=== PATIENT | female | born 1985 | race Asian ===

== ENCOUNTER 2018-06-26 10:11 | Inpatient (IN) | payer SELFPAY ==
[~2018-06-26] VITALS: Ht 160 cm; Wt 86.2 kg
[2018-06-26] MEDS ORDERED: PREN-380 PO (10:20)
[2018-06-26] MEDS ORDERED: LACTATED RINGERS 1,000 ML IV SCH (10:21)
[2018-06-26 10:53] LABS: BASOPHILS % (AUTO) 0.1 % (0.0-2.0); EOSINOPHILS % (AUTO) 0.5 % (0.0-4.0); HEMOGLOBIN 10.6 g/dL (12.0-16.0); LYMPHOCYTES # (AUTO) 1.3 K/uL (2.5-16.5); LYMPHOCYTES % (AUTO) 16.1 % (20.5-51.1); MEAN CORPUSCULAR HEMOGLOBIN 28 pg (27-31); MEAN CORPUSCULAR HGB CONC 32 g/dL (33-37); MEAN CORPUSCULAR VOLUME 87.1 fL (80-94); MONOCYTES # (AUTO) 0.6 K/uL (0.8-1.0); NEUTROPHILS # (AUTO) 6.1 K/uL (1.8-7.7); NEUTROPHILS % (AUTO) 76.3 % (42.2-75.2); PLATELET COUNT (AUTO) 140 K/uL (140-450); RED BLOOD CELL COUNT(AUTO) 3.78 MIL/uL (4.20-5.40); RED CELL DISTRIBUTION WIDTH 23.6 % (11.6-13.7); WHITE BLOOD COUNT (AUTO) 8.1 K/uL (4.8-10.8)
[2018-06-26 10:56] LABS: APPEARANCE,URINE CLEAR (CLEAR); BILIRUBIN,URINE NEGATIVE (NEGATIVE); BLOOD, URINE 2+ (NEGATIVE); COLOR,URINE YELLOW (YELLOW); LEUKOCYTE ESTERASE ,URINE NEGATIVE (NEGATIVE); NITRITE, URINE NEGATIVE (NEGATIVE); PH,URINE 6.5 (5.0-9.0); UGLUCOSE NEGATIVE (NEGATIVE)
[2018-06-26 11:07] LABS: RBC,URINE 0-5 (RARE) /HPF (0-5); WBC,URINE 0-5 (RARE) /HPF (0-5)
[2018-06-26] MEDS ORDERED: ePHEDrine 50 MG/ML VIAL ONE (11:58)
[2018-06-26] MEDS ORDERED: BUPIVACAINE/DEXT 0.75% SPINAL 2 ML AMP INJ ONE (11:58)
[2018-06-26] MEDS ORDERED: OXYTOCIN 10 UNITS/ML VIAL ONE (11:59)
[2018-06-26] MEDS ORDERED: fentaNYL 0.05 MG/ML VIAL ONE (12:03)
[2018-06-26] MEDS ORDERED: MORPHINE PRES FREE 2 MG/2 ML 2 mL UD SYRINGE ONE (12:03)
[2018-06-26] MEDS ORDERED: ONDANSETRON 4 MG/2 ML VIAL IVP PRN ×2 (12:30→16:00)
[2018-06-26] MEDS ORDERED: NALBUPHINE 10 MG/ML AMP IVP PRN (12:30)
[2018-06-26] MEDS ORDERED: NALOXONE 0.4 MG/ML VIAL IVP PRN ×2 (12:30)
[2018-06-26] MEDS ORDERED: KETOROLAC 60 MG/2 ML VIAL IM PRN (12:30)
[2018-06-26] MEDS ORDERED: ONDANSETRON 4 MG/2 ML VIAL ONE (12:56)
[2018-06-26] MEDS ORDERED: diphenhydrAMINE 50 MG/ML VIAL ONE (12:57)
[2018-06-26] MEDS ORDERED: diphenhydrAMINE 50 MG/ML VIAL IVP PRN (13:25)
[2018-06-26] MEDS: OXYTOCIN 20 UNITS/LR PREMIX 1,000 ML IV ONE ×2 (13:44→13:50)
[2018-06-26] MEDS ORDERED: MEASLES, MUMPS, AND RUBELLA 1 VIAL SQVAC PRN (16:40)
[2018-06-26] MEDS ORDERED: TEMAZEPAM 15 MG CAP PO PRN (16:40)
[2018-06-26] MEDS ORDERED: METHYLERGONOVINE 0.2 MG/ML AMP IM PRN (16:40)
[2018-06-26] MEDS ORDERED: oxyCODONE/APAP 5/325 MG 1 TAB TAB PO PRN (16:40)
[2018-06-26 17:47] VITALS: BP 106/60
[2018-06-26] MEDS: DOCUSATE SOD/SENNA 50/8.6 MG 1 TAB PO SCH (20:59)
[2018-06-26] MEDS: OXYTOCIN 20 UNITS in LACTATED RINGERS 1,000 ML IV SCH (22:05)
[2018-06-27] MEDS ORDERED: OXYTOCIN 20 UNITS/LR PREMIX 1,000 ML IV ONE (06:47)
[2018-06-27] MEDS: OXYTOCIN 20 UNITS in LACTATED RINGERS 1,000 ML IV SCH (06:51)
[2018-06-27 08:38] LABS: BASOPHILS % (AUTO) 0.1 % (0.0-2.0); EOSINOPHILS % (AUTO) 0.2 % (0.0-4.0); HEMATOCRIT 30.2 % (36-48); HEMOGLOBIN 9.8 g/dL (12.0-16.0); LYMPHOCYTES % (AUTO) 10.4 % (20.5-51.1); MEAN CORPUSCULAR HEMOGLOBIN 29 pg (27-31); MEAN CORPUSCULAR HGB CONC 33 g/dL (33-37); MEAN CORPUSCULAR VOLUME 88.3 fL (80-94); MONOCYTES # (AUTO) 0.6 K/uL (0.8-1.0); MONOCYTES % (AUTO) 6.1 % (1.7-9.3); NEUTROPHILS # (AUTO) 7.9 K/uL (1.8-7.7); NEUTROPHILS % (AUTO) 83.2 % (42.2-75.2); PLATELET COUNT (AUTO) 106 K/uL (140-450); RED BLOOD CELL COUNT(AUTO) 3.42 MIL/uL (4.20-5.40); RED CELL DISTRIBUTION WIDTH 24.7 % (11.6-13.7); WHITE BLOOD COUNT (AUTO) 9.5 K/uL (4.8-10.8)
[2018-06-27] MEDS ORDERED: SODIUM PHOSPHATE 118 ML ENEM RC SCH (09:00)
--- NOTE | 2018-06-27 09:45 | NUR ---
PATIENT HAS BEEN SCREENED AND CATEGORIZED LOW NUTRITION RISK. PATIENT WILL BE SEEN WITHIN 7 DAYS OF ADMISSION. 07/02/[address]
[2018-06-27] MEDS: SIMETHICONE 80 MG TAB.CHEW PO PRN ×2 (12:58→18:00)
[2018-06-27] MEDS: HYDROcodone/APAP 5/325 MG 1 TAB TAB PO PRN (13:48)
[2018-06-27] MEDS: DOCUSATE SOD/SENNA 50/8.6 MG 1 TAB PO SCH (21:44)
[2018-06-28] MEDS: HYDROcodone/APAP 5/325 MG 1 TAB TAB PO PRN (03:33)
[2018-06-28] MEDS: SIMETHICONE 80 MG TAB.CHEW PO PRN (08:31)
== END 2018-06-28 16:00 | disposition home or self-care (01) | DRG 766 ==
LOC: MLD 10:11 → MFCC 17:38
PROVIDERS: ADMIT Obstetrics & Gynecology; ATTEND Obstetrics & Gynecology
PROC: 3E0234Z Introduction of Serum, Toxoid and Vaccine into Muscle, Percutaneous Approach (ICD-10-PCS; 2018-06-26)
PROC: 10D00Z1 Extraction of Products of Conception, Low, Open Approach (ICD-10-PCS; principal; 2018-06-26 12:00)
DX: O34.211 Maternal care for low transverse scar from previous cesarean delivery (principal); Z37.0 Single live birth; Z3A.38 38 weeks gestation of pregnancy; Z23 Encounter for immunization
CPT/HCPCS: 36415; 81001; 85025; 86592; 86886; 86900; 86901; 90715; J0690; J1200; J2270; J2405; J2590; J3010; J3490; J7060; J7120